=== PATIENT | male | born 1990 | race Caucasian/White ===

== ENCOUNTER → 2016-07-04 | Day surgery (SDC) | payer OTHER | LOC: RAD 12:57 | PROVIDERS: ATTEND Orthopaedic Surgery | PROC: BP0LZZZ Plain Radiography of Right Wrist (ICD-10-PCS; principal; 2016-07-04) | DX: M67.431 Ganglion, right wrist (principal); M77.9 Enthesopathy, unspecified; M25.531 Pain in right wrist | CPT/HCPCS: 73222; 73115; 77002; A9576 ==